=== PATIENT | male | born 1980 | race Caucasian/White ===

== ENCOUNTER 2018-08-02 06:10 | Emergency (ER) | payer MEDICAID ==
[2018-08-02] MEDS: LIDOCAINE 1%/EPI (1:100,000) (MDV) 20 ML INJ ×2 (07:00→07:55)
[2018-08-02] MEDS ORDERED: LIDOCAINE 1%/EPI (MDV) 50 ML INJ INJ (07:00)
[2018-08-02] MEDS: TRANEXAMIC ACID 1,000 MG/10 ML VIAL IV (07:54)
== END 2018-08-02 08:05 | disposition home or self-care (01) ==
LOC: E/R 08:05
DX: K06.8 Other specified disorders of gingiva and edentulous alveolar ridge (principal); K04.7 Periapical abscess without sinus
CPT/HCPCS: 96374; 99284-25; Z7610